=== PATIENT | female | born 1945 | race Caucasian/White ===

== ENCOUNTER 2024-06-25 10:50 | Emergency (ER) | payer MEDICARE, OTHER ==
[~2024-06-25] VITALS: Ht 147.3 cm; Wt 69.5 kg
[2024-06-25 10:54] VITALS: BP 147/76; PULSE 100; TEMP 97.5; O2SAT 99
[2024-06-25 13:03] VITALS: RESP 16
== END 2024-06-25 13:04 | disposition home or self-care (01) ==
LOC: ER 10:50
DX: R04.0 Epistaxis (principal)
CPT/HCPCS: 99281; A6402; A6449